=== PATIENT | female | born 1970 | race Caucasian/White ===

== ENCOUNTER 2024-01-08 21:33 | Emergency (ER) | payer OTHER ==
[~2024-01-08] VITALS: Ht 152.4 cm; Wt 58.5 kg
[2024-01-08] MEDS ORDERED: POLY10DR OP (22:33)
[2024-01-08 22:36] VITALS: BP 128/70; TEMP 98.3; O2SAT 98
== END 2024-01-08 22:37 | disposition home or self-care (01) ==
LOC: ER 21:36
DX: H10.9 Unspecified conjunctivitis (principal); Z60.2 Problems related to living alone